=== PATIENT | male | born 1975 ===

== ENCOUNTER 2018-03-14 00:13 | Day surgery (SDC) | payer BC ==
[~2018-03-14] VITALS: Ht 182.9 cm; Wt 78.0 kg
[~2018-03-14 00:13] MED LIST: IBUP200C74 PO; LISI20TA29 PO; SIMV-54 PO; VENL150C61 PO
[2018-03-14 10:26] VITALS: BP 120/77
[2018-03-14] MEDS ORDERED: DEXAMETHASONE SOD 4 MG/ML VIAL ONE (10:45)
[2018-03-14] MEDS ORDERED: BUPIVACAIN 0.25% INJ 50ML VIAL ONE (10:45)
[2018-03-14] MEDS ORDERED: DEXAMETHASONE SOD PHOS 10MG/ML ONE ×2 (10:48→10:51)
[2018-03-14] MEDS ORDERED: ONDANSETRON 4 MG/2 ML VIAL ONE ×2 (10:51→15:07)
[2018-03-14] MEDS ORDERED: ROCURONIUM BROM 10 MG/ML 10 ML ONE (10:51)
[2018-03-14] MEDS ORDERED: PROPOFOL EMUL(*) 10MG/ML 20 ML 40 ML ONE (10:51)
[2018-03-14] MEDS ORDERED: LIDOCAINE MPF 1% 5 ML VIAL ONE (10:51)
[2018-03-14] MEDS ORDERED: GABAPENTIN 300 MG CAP PO ONE (11:25)
[2018-03-14] MEDS ORDERED: MIDAZOLAM 2 MG/2 ML VIAL IVP PRN (11:25)
[2018-03-14] MEDS ORDERED: DIAZEPAM 10 MG TAB PO ONE (11:25)
[2018-03-14] MEDS ORDERED: LIDOCAINE/SOD BICARB 8.4% SYR ID ONE (11:25)
[2018-03-14] MEDS ORDERED: NORMOSOL R SOLN(*) 1000 ML BAG 1,000 ML IV PRN (11:25)
[2018-03-14] MEDS ORDERED: FAMOTIDINE 20 MG TAB PO ONE (11:25)
[2018-03-14] MEDS ORDERED: ceFAZolin(*) 2GM/D5W 50ML 50 ML IVPB ONE (11:25)
[2018-03-14] MEDS ORDERED: fentaNYL CITR 250 MCG/5 ML AMP ONE (12:10)
[2018-03-14] MEDS ORDERED: DEXAMETHASONE SOD 20MG/5 ML VL ONE (12:59)
[2018-03-14] MEDS ORDERED: SUGAMMADEX SOD 500 MG/5 ML SDV ONE (13:01)
[2018-03-14] MEDS ORDERED: KETOROLAC 30 MG/ML VIAL ONE (13:39)
[2018-03-14] MEDS ORDERED: fentaNYL CITR 100 MCG/2 ML AMP ONE (13:45)
[2018-03-14] MEDS ORDERED: LOR5/325 PO (13:50)
[2018-03-14] MEDS ORDERED: DIA5 PO (13:51)
[2018-03-14] MEDS ORDERED: DOCU240C84 PO (13:52)
[2018-03-14] MEDS ORDERED: APAP/HYDROCODONE 325/5 TAB ONE (14:12)
[2018-03-14 14:38] VITALS: BP 108/69
[2018-03-14 14:55] VITALS: BP 107/74
[2018-03-14 15:04] VITALS: BP 121/77
[2018-03-14 15:12] VITALS: BP 106/71
--- NOTE | 2018-03-14 15:15 | OPERATIVE REPORT 1 ---
EVENT DATE: March 14, 2018 SURGEON: Calryle Limon MD ANESTHESIOLOGIST: Elias Cameron MD ANESTHESIA: General endotracheal anesthesia. TOBACCO WETTER: VENICE Hunter PREOPERATIVE DIAGNOSIS Left S1 radiculopathy with L5-L6 herniated nucleus pulposus. POSTOPERATIVE DIAGNOSIS Left S1 radiculopathy with L5-L6 herniated nucleus pulposus. PROCEDURE PERFORMED L5-L6 microdiskectomy. INTRAVENOUS FLUIDS 1300 mL ESTIMATED BLOOD LOSS 25 mL IMPLANTS USED None. SPECIMENS None. DRAINS None. COMPLICATIONS None. DISPOSITION Post-anesthesia care unit. INDICATIONS FOR SURGERY Mr. Pena is a 42-year-old male who presented with chief complaint of radiating left lower extremity pain, numbness, and tingling in the posterior buttock, posterior thigh, posterolateral calf, and dorsal and lateral aspects of left foot. He underwent treatment with a Medrol Dosepak and then an epidural steroid injection. His symptoms actually worsened and changed in location, now present in an S1 distribution down the posterior buttock, posterior thigh, posterior calf, and into the lateral and plantar aspects of the left foot. He noted weakness of the left lower extremity as well. His physical examination was significant for slightly decreased strength in the left extensor hallucis longus and significant weakness in peroneals at 4/5 on the left compared to 5/5 on the right. Achilles tendon deep tendon reflexes were 2+ on the right, 1+ on the left. An MRI of the lumbar spine along with x- rays were reviewed that showed six [id number] vertebrae. There was a large left paracentral disk herniation at the L5-L6 level with inferior extrusion compressing and traversing the nerve root at that level. Secondary to ongoing symptoms and failure of nonsurgical care, Mr. Pena was offered and elected to undergo L5-L6 microdiskectomy. Prior to surgery, I explained in detail to the patient the possible risks of surgery. These included bleeding, nerve root injury, damage to surrounding structures, spinal fluid leak, infection and/or meningitis, persistent and/or worsening pain, , blindness, sexual dysfunction, autonomic nervous system dysfunction, and other unforeseen medical and surgical complications. An understanding that spinal surgery is more predictive at improving extremity discomfort than axial spine pain was stressed. DESCRIPTION OF PROCEDURE On the day of surgery, the patient was met in the preoperative hold area, and all questions were answered. The operative site was identified and marked by myself. The patient was brought in good condition to the operating room, and after succumbing to anesthesia, was placed in the prone position on a Delta table. All bony protuberances and soft tissues were well padded in the standard fashion. Care was taken to maintain appropriate perfusion pressures during anesthesia. Preoperative antibiotics were administered according to the appropriate timing schedule. At the conclusion of the procedure, sponge and needle counts were correct times two. Final timeout was undertaken by members of the operating team to confirm correct patient, correct levels, and correct surgery. A 20-gauge spinal needle was placed on the spinous process of L5, and a lateral radiograph was obtained to confirm correct spinal level. The patient was then prepped and draped in the standard sterile orthopedic fashion, and an incision was made over the intended surgical levels. Dissection was carried out down to the L5 spinous process. Soft tissues were elevated off the L5 spinous process and lamina on the left side in a subperiosteal manner. Similar elevation of soft tissues was carried out over the superior aspect of the L6 lamina. A self-retaining retractor was placed, and a microscope was brought into the field. Remaining soft tissue was removed from over the interlaminar space. The ligamentum flavum was elevated off its inferior insertion into the superior aspect of the L6 lamina using a Rubio curette to undermine that insertion and enter the canal. A Abel elevator was then used to free any dural adhesions from the surrounding bone and soft tissue. A 3.0 Kerrison punch was used to widen out the foraminotomy as necessary. The shoulder of the traversing nerve root was mobilized and retracted medially with Rocky nerve root retractor. A very large extruded disk fragment was identified and removed in one piece using a pituitary rongeur. The [place] elevator as well as a Stewart probe were then used to explore the floor of the canal, sweeping and searching for further disk fragments. A couple of other small disk fragments were identified and removed. The foramen was checked for any stenosis, and none was found. The shoulder of the nerve root and the root as it exited the foramen were free of any compression at the conclusion of the procedure. The wound was then irrigated with copious sterile saline solution. Meticulous hemostasis was obtained. Decadron 2 mg was infused around the nerve root in question, and the wound was then closed in layers using interrupted sutures for the deep fascia, inverted interrupted sutures for the subcutaneous tissue, and a running subcuticular skin stitch. Sponge and needle counts were correct times two. POSTOPERATIVE CARE PLAN Mr. Pena will be discharged home today with appropriate medications. He will follow up in my clinic in two weeks' time for wound check and examination. EVE
--- NOTE | 2018-03-14 16:39 | RADIOLOGY IMAGING REPORT ---
FACILITY: [facility] - [place] PATIENT NAME: Armando Pena : 1975 MR: [id number] V: [id number] EXAM DATE: ORDERING PHYSICIAN: OSMAN PEREZ TECHNOLOGIST: Location: [facility] - [place] Patient: Armando Pena : 1975 Visit/Account:[id number] Date of Sevice: 03/14/2018 ADDENDUM #1 The wrong images were attached to minus report. This is the actual report. This is a study of a intra operative lumbar spine radiograph, not a shoulder radiograph. LUMBAR SPINE 1 VIEW Indication: L5-L6 DISC HERNIATION Comparison: None. Findings: Intraoperative images from lumbar spine surgery are reviewed. Posterior instrumentation is seen at the level of L5 and L4. IMPRESSION: Intraoperative images from surgery lumbar spine, with instrumented level of the L4 and L5 vertebral bodies. Report Dictated By: Brett Bergman at 03/14/2018 4:38 PM Report E-Signed By: Brett Bergman at 03/14/2018 4:48 PM ORIGINAL REPORT Exam: 2 views right shoulder. INDICATION: Pain Comparison: Right shoulder radiograph 09/23/2012 FINDINGS: There is severe narrowing of the right glenohumeral joint and the subacromial joint space. There is no evidence of fracture. The clavicle scapula and proximal humerus are intact. IMPRESSION: 1. Severe degenerative changes right shoulder. 2. No evidence of fracture or dislocation. Report Dictated By: Brett Bergman at 03/14/2018 4:31 PM Report E-Signed By: Brett Bergman at 03/14/2018 4:36 PM WSN:[id number]
== END 2018-03-14 14:37 | disposition home or self-care (01) ==
LOC: OR 00:13
PROVIDERS: ATTEND Orthopaedic Surgery
DX: M51.16 Intervertebral disc disorders with radiculopathy, lumbar region (principal)
CPT/HCPCS: 63030; 72020; 94667; J1100; J1885; J2001; J2405; J2704; J3010; J3490; J0690